=== PATIENT | male | born 1995 | race Caucasian/White ===

== ENCOUNTER 2019-05-05 03:03 | Emergency (ER) | payer OTHER ==
[~2019-05-05] VITALS: Ht 182.9 cm; Wt 73.9 kg
[~2019-05-05 03:03] MED LIST: NOHOMEMEDICATIONS
[2019-05-05] MEDS ORDERED: ACETAMINOPHEN-1 EAC1 PO (04:12)
[2019-05-05] MEDS ORDERED: Magic Mouthwash SWISH&SPIT (04:12)
[2019-05-05] MEDS ORDERED: AMOXICILLIN 50500 M1 PO (04:12)
[2019-05-05 04:32] VITALS: BP 126/75
== END 2019-05-05 04:32 | disposition home or self-care (01) ==
LOC: M.ERS 03:03
DX: J02.9 Acute pharyngitis, unspecified (principal); Z90.89 Acquired absence of other organs; Z90.49 Acquired absence of other specified parts of digestive tract

== ENCOUNTER 2019-05-07 10:46 | Emergency (ER) | payer OTHER ==
[~2019-05-07] VITALS: Ht 182.9 cm; Wt 74.8 kg
[~2019-05-07 10:46] MED LIST changes: +ACETAMINOPHEN-1 EAC1 PO; +AMOXICILLIN 50500 M1 PO; +Magic Mouthwash SWISH&SPIT
[2019-05-07 11:47] LABS: ABSOLUTE BASOPHILS 0.1 thou/uL (0.0-0.2); ABSOLUTE EOSINOPHILS 0.2 thou/uL (0.0-0.7); ABSOLUTE LYMPHOCYTES 1.1 thou/uL (0.8-5.3); ABSOLUTE MONOCYTES 1.3 thou/uL (0.0-1.2); BASOPHILS 0.5 %; EOSINOPHILS 1.3 %; HEMATOCRIT 45.1 % (42.0-52.0); HEMOGLOBIN 15.8 gm/dL (14.0-18.0); LYMPHOCYTES 7.3 %; MCH 31.9 pg (26.0-34.0); MONOCYTES 8.5 %; MPV 8.7 fl. (7.2-11.1); NUCLEATED RBCS 0 /100WBC; PLATELET COUNT* 214 thou/uL (150-400); POLYS 82.4 %; RBC 4.95 mil/uL (4.50-6.00); RDW-CV 12.4 % (10.5-14.5); WBC 15.8 thou/uL (4.0-11.0)
[2019-05-07 12:00] LABS: POTASSIUM 4.5 mmol/L (3.5-5.1)
[2019-05-07 12:05] LABS: ALBUMIN 4.2 g/dL (3.4-5.0); TOTAL BILIRUBIN 0.6 mg/dL (<0.1-1.0); TOTAL PROTEIN 7.6 g/dL (6.4-8.2)
[2019-05-07 13:31] VITALS: BP 118/52
== END 2019-05-07 13:32 | disposition home or self-care (01) ==
LOC: M.ERS 10:46
PROVIDERS: Nurse Practitioner Family
DX: E86.0 Dehydration (principal); J02.9 Acute pharyngitis, unspecified; H65.93 Unspecified nonsuppurative otitis media, bilateral; Z90.49 Acquired absence of other specified parts of digestive tract; Z98.890 Other specified postprocedural states

== ENCOUNTER 2019-06-03 23:19 | Emergency (ER) | payer OTHER ==
[~2019-06-03] VITALS: Ht 182.9 cm; Wt 73.9 kg
[2019-06-03] MEDS ORDERED: PREDNISONE50 MG PO (23:59)
[2019-06-03] MEDS ORDERED: ANTIVERT25 MG PO (23:59)
[2019-06-04 00:32] VITALS: BP 123/79
== END 2019-06-04 00:37 | disposition home or self-care (01) ==
LOC: M.ERS 23:19
DX: R42 Dizziness and giddiness (principal); Z90.49 Acquired absence of other specified parts of digestive tract; Z98.890 Other specified postprocedural states

== ENCOUNTER 2019-09-11 12:29 | Emergency (ER) | payer OTHER ==
[~2019-09-11] VITALS: Ht 182.9 cm; Wt 74.4 kg
[~2019-09-11 12:29] MED LIST changes: +ANTIVERT25 MG PO; +PREDNISONE50 MG PO
[2019-09-11 13:03] LABS: URINE BILIRUBIN NEGATIVE (Negative); URINE BLOOD NEGATIVE (Negative); URINE CLARITY CLEAR; URINE COLOR YELLOW; URINE GLUCOSE-RANDOM NEGATIVE (Negative); URINE KETONES NEGATIVE (Negative); URINE LEUKOCYTES-REFLEX NEGATIVE (Negative); URINE NITRITE-REFLEX NEGATIVE (Negative); URINE PROTEIN NEGATIVE (Negative); URINE UROBILINOGEN 0.2 E.U./dl (0.2-1.0)
[2019-09-11 13:09] LABS: AMP/METHAMP Negative (Negative); BARBITURATES Negative (Negative); BENZODIAZEPINES Negative (Negative); COCAINE Negative (Negative); METHADONE Negative (Negative); OPIATES Negative (Negative); PCP Negative (Negative); THC POSITIVE (Negative)
[2019-09-11 13:12] LABS: ABSOLUTE EOSINOPHILS 0.1 thou/uL (0.0-0.7); ABSOLUTE LYMPHOCYTES 1.9 thou/uL (0.8-5.3); ABSOLUTE MONOCYTES 0.5 thou/uL (0.0-1.2); ABSOLUTE NEUTROPHILS 3.7 thou/uL (1.6-8.1); BASOPHILS 0.7 %; EOSINOPHILS 1.8 %; HEMATOCRIT 45.3 % (42.0-52.0); HEMOGLOBIN 15.8 gm/dL (14.0-18.0); LYMPHOCYTES 29.9 %; MCH 31.1 pg (26.0-34.0); MCHC 34.9 g/dL (28.0-37.0); MCV 89.1 fL (80.0-100.0); MONOCYTES 7.8 %; MPV 8.4 fl. (7.2-11.1); NUCLEATED RBCS 0 /100WBC; PLATELET COUNT* 232 thou/uL (150-400); POLYS 59.8 %; RBC 5.09 mil/uL (4.50-6.00); RDW-CV 12.7 % (10.5-14.5); WBC 6.2 thou/uL (4.0-11.0)
[2019-09-11 13:29] LABS: ALBUMIN 4.3 g/dL (3.4-5.0); CALCIUM 8.6 mg/dL (8.5-10.1); CREATININE 0.8 mg/dL (0.6-1.3); POTASSIUM 4.1 mmol/L (3.5-5.1); TOTAL BILIRUBIN 0.8 mg/dL (<0.1-1.0); TOTAL PROTEIN 7.3 g/dL (6.4-8.2)
[2019-09-11] MEDS ORDERED: OMEPRAZOLE 20 M20 M1 PO (14:15)
[2019-09-11] MEDS ORDERED: PROTONIX 20 MG20 M1 PO (14:15)
[2019-09-11 14:25] VITALS: BP 119/71
== END 2019-09-11 14:25 | disposition home or self-care (01) ==
LOC: M.ERS 12:29
PROVIDERS: Physician Assistant
DX: R10.13 Epigastric pain (principal); Z90.49 Acquired absence of other specified parts of digestive tract; Z90.89 Acquired absence of other organs; Z79.899 Other long term (current) drug therapy